=== PATIENT | male | born 1990 ===

== ENCOUNTER 2022-10-01 20:19 | Emergency (ER) | payer SELFPAY ==
--- NOTE | 2022-10-01 20:24 | PC.NURSE ---
patient not wanting to wait. alert and oriented x4. ambulatory with steady gait. states will come tomorrow.
== END 2022-10-01 20:24 | disposition left against medical advice (07) ==
DX: Z53.21 Procedure and treatment not carried out due to patient leaving prior to being seen by health care provider (principal)
CPT/HCPCS: 99199